=== PATIENT | female | born 1960 | race Caucasian/White ===

== ENCOUNTER 2017-08-05 09:00 | Inpatient (IN) | payer OTHER ==
[2017-07-13 15:18] VITALS: BMI 36.0
--- NOTE | 2017-07-13 16:05 | PAT Medication Instructions ---
Service Date Jul 13, 2017. Current Home Medication List Cholecalciferol (Vitamin D3), 1 CAP PO WK Meloxicam (Mobic), 15 MG PO HS Valacyclovir (Valtrex), 1,000 MG PO HS Medication Instructions For Your Scheduled Surgery Cholecalciferol (Vitamin D3), 1 CAP PO WK (continue as directed) - Check with surgeon for instructions: Meloxicam (Mobic), 15 MG PO HS - Take the following medications as scheduled the night before surgery: Valacyclovir (Valtrex), 1,000 MG PO HS If you have any questions please call us at [phone] or [phone] or [phone]
[2017-07-13 16:29] LABS: BASO % 0.8 %; BASO ABS # 0.05 K/uL (0-0.2); COMPLETE YES; EOS % 1.8 %; HEMATOCRIT 36.2 % (37-47); IG% 0.3 %; LYMPH % 34.3 %; LYMPH ABS # 2.27 K/uL (1.2-3.4); MEAN CELL VOLUME 96.8 fL (80-100); MEAN PLATELET VOLUME 10.4 fL (7.4-10.4); MONO % 9.5 %; NEUT % 53.3 %; PLATELET COUNT 197 K/uL (130-400); RED BLOOD COUNT 3.74 M/uL (4.2-5.4); WHITE BLOOD COUNT 6.62 K/uL (4.8-10.8)
--- NOTE | 2017-07-13 16:29 | DIAGNOSTIC IMAGING REPORT ---
CHEST PREADMISSION(PA/LAT) HISTORY: 56 years-old Female PAT preoperative exam. No acute chest complaints. COMPARISON: None available TECHNIQUE: PA and lateral views of the chest FINDINGS: Cardiomediastinal and hilar silhouettes are within normal limits. There is no pneumothorax, pleural effusion, focal airspace consolidation or overt pulmonary edema. The bones of the chest appear grossly intact. Moderate degenerative changes of the shoulders and spine. Surgical clips of the right upper abdomen suggest prior cholecystectomy. IMPRESSION: No acute cardiopulmonary process. The above report was generated using voice recognition software. It may contain grammatical, syntax or spelling errors. Electronically signed by: Justo Garcia M.D. 07/13/2017 4:28 PM Dictated Date/Time: 07/13/2017 4:27 PM
[2017-07-13 16:38] LABS: PROTHROMBIN TIME (PATIENT) 10.5 SECONDS (9.0-12.0)
[2017-07-13 16:40] LABS: BUN/CREATININE RATIO 23.7 (10-20); CALCIUM 9.4 mg/dl (8.5-10.1); CREATININE 0.79 mg/dl (0.60-1.20)
[2017-07-13 16:42] LABS: URINE APPEARANCE CLEAR (CLEAR); URINE BILIRUBIN NEG (NEG); URINE COLOR YELLOW; URINE NITRITE NEG (NEG); URINE SPECIFIC GRAVITY 1.022 (1.000-1.030); UROBILINOGEN NEG (NEG)
[2017-07-13 16:43] LABS: MANUAL MICROSCOPIC REQUIRED? NO; REVIEW REQ? NO
[2017-07-13 16:45] LABS: ESTIMATED AVERAGE GLUCOSE 103 mg/dl; HA1C FLAG Normal (Normal)
--- NOTE | 2017-08-04 20:22 | HISTORY & PHYSICAL EXAMINATION ---
DATE OF ADMISSION: 08/05/2017 HISTORY OF PRESENT ILLNESS: The patient presents as a 56-year-old white female, 5 feet 8 inches, 230 pounds, presents with left knee pain. She presents for left total knee arthroplasty. She has failed attempts at conservative management including physical therapy, anti-inflammatories, relative rest, activity modification and she presents for left total knee arthroplasty. PAST MEDICAL HISTORY: Otherwise, unremarkable for hypertension or hypercholesterolemia. The patient relates a history of previous sleep apnea. No other medical history is noted. FAMILY HISTORY: Unremarkable and noncontributory. PAST SURGICAL HISTORY: The patient relates a C5-C6 cervical spine surgery, hysterectomy total, previous tonsillectomy, meniscus surgery, left knee. ALLERGIES: CODEINE, DEMEROL. MEDICATIONS: Include Valtrex 1000 mg p.o. daily, Mobic p.r.n., vitamin D 50,000 units p.o. q. weekly. REVIEW OF SYSTEMS: Otherwise unremarkable. See history of present illness for pertinent positives. PHYSICAL EXAMINATION: GENERAL: Reveals a very pleasant female noted with complaints of ongoing pain about knee, has been nonresponsive to conservative therapy and presents for total knee arthroplasty after failing conservative management. HEENT: Unremarkable, atraumatic, normocephalic. HEART: Regular at 70 beats per minute. No murmurs noted. LUNGS: Clear. No rales, rhonchi, or wheezes noted. ABDOMEN: Soft, nontender, nondistended. Bowel sounds are present in all 4 quadrants. RECTAL: No rectal examination was performed. MUSCULOSKELETAL: Consistent with that of DJD, left knee. PLAN: Left total knee arthroplasty, postoperative pain management, DVT prophylaxis, antibiotics as noted above. MTDD
[2017-08-05] VITALS (7 sets, daily range): BP systolic 103–136; BP diastolic 62–81; PULSE 64–80; TEMP 36.3–36.5; O2SAT 93–100; Ht 172.7 cm; Wt 107.0 kg
[~2017-08-05] VITALS: Ht 172.7 cm; Wt 107.0 kg
[2017-08-05] MEDS: TRANEXAMIC ACID INJ 1,000 MG in SYRINGE 0 ML IV SCH ×2 (06:30→11:00)
--- NOTE | 2017-08-05 08:05 | History & Physical Bridge Note ---
H&P Re-Evaluation Bridge Note: I have examined the patient, reviewed the History & Physical and in the interval since the performance of the History & Physical I have noted the following changes of clinical significance: No changes noted
[~2017-08-05 09:00] MED LIST: ACETAMINOPHEN 500 MG TAB PO SCH; BUPIVACAINE 0.25% 30 ML VIAL ONE; BUPIVACAINE 0.5 % 5 MG/1 ML PF 10ML VIAL ONE; CEFAZOLIN 2000MG IV PUSH 10 ML IV SCH; CHOL1CAP95 PO; CeleBREX 200 MG CAP PO SCH; DEXAMETHASONE 4 MG TAB PO SCH; DEXAMETHASONE SOD INJ 4 MG/ML VIAL ONE; EpINEphrine INJ 1MG/ML AMP 1 MG/ML AMP ONE; GABAPENTIN 300 MG CAP PO SCH; LACTATED RINGER'S 1000ML 1,000 ML IV SCH; LACTATED RINGER'S 1000ML 500 ML IV ONE; LACTATED RINGER'S 1000ML IV SCH; MELO7.5T5 PO; METOCLOPRAMIDE HCL 10 MG TAB PO SCH; ROPIVACAINE 5MG/ML 30 ML 150 MG, BUPIVACAINE 0.5% MPF INJ 30 ML, EpINEphrine HCL INJ 0.... INFIL SCH; VALA500T60 PO
[2017-08-05] MEDS ORDERED: EpHEDrine SULFATE 50MG/5ML SYR ONE (09:26)
[2017-08-05] MEDS ORDERED: LIDOCAINE HCL 2% 2 ML VIAL (20MG/ML) ONE (09:26)
[2017-08-05] MEDS ORDERED: PROPOFOL IV EMULSION 10 MG/ML 20 ML VIAL IV ONE ×2 (09:26→10:25)
[2017-08-05] MEDS ORDERED: FENTANYL CITRATE INJ 50 MCG/1 ML 2 ML VIAL ONE (09:27)
[2017-08-05] MEDS ORDERED: MIDAZOLAM HCL 1 MG/ML 2ML VIAL ONE (09:27)
[2017-08-05] MEDS ORDERED: ORTHO JOINT ANESTHETIC ONE (10:56)
[2017-08-05] MEDS ORDERED: BACITRACIN 50000 UNIT VIAL ONE (10:56)
[2017-08-05] MEDS ORDERED: POVIDONE-IODINE OP SOLN 30 ML BTL ONE (10:56)
--- NOTE | 2017-08-05 12:25 | [facility] Operative Report ---
Operative Report Operative Date Aug 05, 2017. Pre-Operative Diagnosis left knee degenerative joint disease Post-Operative Diagnosis left knee degenerative joint disease Procedure(s) Performed Left knee total arthroplasty using vance nephew non block size 5 femur 5 tibia 12 poly [address] Maykel Cervantes Outside Machinist Helper Surgeon(s) Kevyn Castaneda PAC Estimated Blood Loss 5ML Findings Patient just with severe end-stage DJD valgus alignment [id number] with osteophyte formation subchondral sclerosis, marginal osteophytes subchondral cystic changes she's been nonresponsive to conservative therapy presents for total knee arthroplasty Specimens A: Left knee bone and tissue Complication(s) None Disposition Recovery Room / PACU Indications Patient presents with severe end-stage DJD failing attempts at conservative management including physical therapy anti-inflammatories relativeRest activity modification injections presents for total knee arthroplasty Description of Procedure After proper prepping and draping of the left lower extremity anterior midline incision was made over the region of the extensor extensor mechanism after meticulous hemostasis was obtained and maintained in subcutaneous tissues a medial parapatellar incision was made The patella was subluxed lateralward the medial lateral gutter were cleaned from any hypertrophic synovitis and scar tissue of the distal femoral block was placed and the distal femoral osteotomy cut was made subsequently the chamfers anterior and posterior osteotomy cuts were made utilizing the 4-in-1 block the tibia was subsequently subluxed anteriorward medial and ateral meniscal remnants were excised in their entirety remnants of the anterior and posterior cruciate ligaments were excised in their entirety excellent exposure of the proximal tibia was obtained the tibial osteotomy guide was placed on the proximal tibial osteotomy cut was made once again the knee was irrigated with copious amounts of sterile saline solution the patella was subsequently everted lateralward thickened scar tissue around the patella was removed the patella was subsequently cut utilizing a freehand technique and was drilled prepared for final preparation and placement of patella socially flexion-extension gaps were checked and the equal and symmetric trials were placed to the appropriate femoral and tibial trials with poly-spacer being placed for equal flexion and extension gaps and full range of motion including extension to 0 and flexion to 140 the trial components after having been taken to recovery range of motion was subsequently removed meticulous hemostasis was obtained and maintained subsequently a knee block injection of joint cocktail including ropivacaine 0.5% 150 mg. Bupivacaine 0.5 % epinephrine 1-200,030 mL's toradol 30 mg dexamethasone 4 mg ketamine 10 mg clonidine 100 micrograms normal saline solution 30 mg was infiltrated into the soft tissues of the posterior knee medial lateral gutters and periosteal synovium special attention was paid to protect neurovascular structures at all times subsequently trial components having been removed the knee was irrigated with sterile saline solution. debris was removed the proximal tibia was subsequently prepared and was made ready for the placement of the tibial component tibial component was also cemented and tamped into position the femoral component was subsequently placed and cemented in the position the patellar component was subsequently cemented in position because hemostasis once again obtained and maintained wound having been thoroughly irrigated with debridement and debridement lavage was performed as well as a medial parapatellar incision closed with #1 Vicryl in interrupted fashion subcutaneous was closed with #2 Vicryl skin was closed with skin clips. PA-C was necessary for prepping and drapping as well as wound closure of deep fascia Sub cutaneous tissue and skin and was necessary for the case. A sterile compressive dressing was placed patient was taken to recovery in stable condition of report dictated by Billy I attest to the content of the Intraoperative Record and any orders documented therein. Any exceptions are noted below. I attest to the content of the Intraoperative Record and any orders documented therein. Any exceptions are noted below.
[2017-08-05] MEDS ORDERED: FENTANYL CITRATE INJ 50 MCG/1 ML 2 ML VIAL IV PRN (12:45)
[2017-08-05] MEDS ORDERED: ATROPINE SULFATE 0.1 MG/ML 5ML SYR IV PRN ×2 (12:45→14:15)
[2017-08-05] MEDS ORDERED: EpHEDrine SULFATE INJ 50 MG/ML AMP IV PRN ×2 (12:45→14:15)
[2017-08-05] MEDS ORDERED: ONDANSETRON INJ 2 MG/ML 2 ML VIAL IV PRN (12:45)
[2017-08-05] MEDS ORDERED: ALUMINUM/MAGNESIUM/SIMETH (MAALOX MAX) 30 ML UDC PO PRN (13:00)
[2017-08-05] MEDS ORDERED: OXYCODONE HCL IR 5 MG TAB (IMMEDIATE RELEASE) PO PRN (13:00)
[2017-08-05] MEDS ORDERED: MAGNESIUM HYDROXIDE SUSP 30 ML UDC PO PRN (13:00)
[2017-08-05] MEDS ORDERED: MoRPHine SULFATE 4 MG/ML 1 ML CARP\\VIAL IV PRN (13:00)
[2017-08-05] MEDS ORDERED: BISACODYL 10 MG SUPP PR PRN (13:00)
[2017-08-05] MEDS ORDERED: CEFAZOLIN IV 2,000 MG in DEXTROSE 5% 50ML 50 ML IV SCH (13:00)
[2017-08-05] MEDS ORDERED: MoRPHine SULFATE 2 MG/ML CARP IV PRN (13:00)
--- NOTE | 2017-08-05 13:53 | DIAGNOSTIC IMAGING REPORT ---
L KNEE 1 OR 2 VIEWS ROUTINE CLINICAL HISTORY: Left knee osteoarthritis. COMPARISON: None FINDINGS: Alignment of the total left knee arthroplasty is anatomic. There is no fracture or unexpected radiopaque foreign body. Drains are in place. IMPRESSION: Expected findings following total left knee arthroplasty. Electronically signed by: Mayur Sandhu M.D. 08/05/2017 1:51 PM Dictated Date/Time: 08/05/2017 1:51 PM
--- NOTE | 2017-08-05 14:09 | Anesthesiology Progress Note ---
Anesthesia Post Op Note Date & Time Aug 05, 2017 at 14:09 Vital Signs Pain Intensity: 0 Vital Signs Past 12 Hours Date Time Temp Pulse Resp B/P (MAP) Pulse Ox O2 Delivery O2 Flow Rate FiO2 08/05/17 14:00 74 12 110/69 95 Nasal Cannula 2 08/05/17 13:50 36.5 68 12 121/64 99 Nasal Cannula 2 08/05/17 13:40 63 13 111/70 98 Nasal Cannula 2 08/05/17 13:30 75 17 117/64 100 Nasal Cannula 2 08/05/17 13:20 70 12 120/68 100 Oxymask 10 08/05/17 13:10 73 12 105/63 100 Oxymask 10 08/05/17 13:01 36.1 82 16 108/57 100 Oxymask 10 08/05/17 09:30 36.3 64 20 136/79 100 Room Air Notes Mental Status: alert / awake / arousable, participated in evaluation Pt Amnestic to Procedure: Yes Nausea / Vomiting: adequately controlled Pain: adequately controlled Airway Patency, RR, SpO2: stable & adequate BP & HR: stable & adequate Hydration State: stable & adequate Neuraxial Anesthesia: was administered, sensory block is resolving Anesthetic Complications: no major complications apparent
[2017-08-05] MEDS: D5W AND 1/2NSS + 20MEQ KCL 1,000 ML IV SCH (15:28)
[2017-08-05] MEDS: ACETAMINOPHEN 500 MG TAB PO SCH (16:07)
[2017-08-05] MEDS: FERROUS GLUCONATE 324 MG TAB PO SCH (17:43)
[2017-08-05] MEDS: KETOROLAC TROMETHAMINE 30 MG/ML VIAL IV. SCH (17:43)
[2017-08-05] MEDS: TRAMADOL HCL 50 MG TAB PO PRN ×2 (17:45→23:01)
[2017-08-05] MEDS: CEFAZOLIN IV 2,000 MG in SYRINGE 0 ML IV SCH (21:13)
[2017-08-05] MEDS: ASPIRIN 81 MG ECTAB PO SCH (21:14)
[2017-08-05] MEDS: DOCUSATE SODIUM 100 MG CAP PO SCH (21:15)
[2017-08-05] MEDS: ONDANSETRON INJ 2 MG/ML 2 ML VIAL IV PRN (21:15)
[2017-08-06] VITALS (8 sets, daily range): BP systolic 108–126; BP diastolic 66–87; PULSE 67–73; TEMP 36.4–36.7; O2SAT 95–100
[2017-08-06] MEDS: ACETAMINOPHEN 500 MG TAB PO SCH ×4 (00:04→23:54)
[2017-08-06] MEDS: KETOROLAC TROMETHAMINE 30 MG/ML VIAL IV. SCH ×3 (00:04→12:25)
[2017-08-06] MEDS: D5W AND 1/2NSS + 20MEQ KCL 1,000 ML IV SCH ×2 (01:32→10:43)
[2017-08-06] MEDS: CEFAZOLIN IV 2,000 MG in SYRINGE 0 ML IV SCH (04:24)
[2017-08-06] MEDS: TRAMADOL HCL 50 MG TAB PO PRN ×4 (04:25→21:07)
[2017-08-06 06:38] LABS: HEMATOCRIT 36.4 % (37-47); MEAN CORPUSCULAR HEMOGLOBIN 30.8 pg (25-34); MEAN CORPUSCULAR HGB CONC 32.4 g/dl (32-36); MEAN PLATELET VOLUME 10.8 fL (7.4-10.4); PLATELET COUNT 218 K/uL (130-400); RED BLOOD COUNT 3.83 M/uL (4.2-5.4); WHITE BLOOD COUNT 16.17 K/uL (4.8-10.8)
[2017-08-06 07:12] LABS: BUN/CREATININE RATIO 16.3 (10-20); CALCIUM 8.7 mg/dl (8.5-10.1); CREATININE 0.69 mg/dl (0.60-1.20); POTASSIUM 4.1 mmol/L (3.5-5.1)
--- NOTE | 2017-08-06 07:53 | Orthopedic Progress Note ---
Orthopedic Progress Note Date of Service Aug 06, 2017. Subjective Post OP Day: 1 Reports: feeling well, Denies: chest pain, SOB, nausea / vomiting, light headedness, calf pain Additional Notes: JOSÉ NOT HELPING MUCH. SHE FOUND THAT 2 TRAMADOL SEEMS TO BE CONTROLLING HER PAIN BEST. Objective calves soft nontender, N/V intact, dressing C/D/I, A&O x3, toes mobile, hemovac drainage (305/125 cc per shift) Date Time Temp Pulse Resp B/P (MAP) Pulse Ox O2 Delivery O2 Flow Rate FiO2 08/06/17 07:32 36.5 69 18 111/67 (82) 95 Room Air 08/06/17 02:52 36.4 71 18 110/66 (81) 95 Room Air 08/06/17 00:15 Room Air 08/05/17 22:56 36.4 69 18 112/70 (84) 93 Room Air 08/05/17 19:25 36.5 73 18 103/62 (76) 94 Room Air 08/05/17 17:20 36.5 80 18 113/74 (87) 97 Room Air 08/05/17 15:25 Nasal Cannula 2.0 08/05/17 15:20 36.4 79 16 112/74 (87) 99 Nasal Cannula 2.0 08/05/17 14:50 36.4 75 18 115/81 (92) 98 Nasal Cannula 2.0 08/05/17 14:20 36.4 69 16 121/80 (94) 98 Nasal Cannula 2.0 08/05/17 14:20 98 Nasal Cannula 2.0 08/05/17 14:20 98 Nasal Cannula 08/05/17 14:00 74 12 110/69 95 Nasal Cannula 2 08/05/17 13:50 36.5 68 12 121/64 99 Nasal Cannula 2 08/05/17 13:40 63 13 111/70 98 Nasal Cannula 2 08/05/17 13:30 75 17 117/64 100 Nasal Cannula 2 08/05/17 13:20 70 12 120/68 100 Oxymask 10 08/05/17 13:10 73 12 105/63 100 Oxymask 10 08/05/17 13:01 36.1 82 16 108/57 100 Oxymask 10 08/05/17 09:30 36.3 64 20 136/79 100 Room Air Laboratory Results 24 Hours: Test 08/06/17 06:10 Hematocrit 36.4 % Hemoglobin 11.8 g/dL Assessment & Plan Assessment: POD#1 SP LEFT TKA Inhouse Planning Pain Management: Ultram, PO Tylenol DVT Prophylaxis: TEDs, SCDs, ASA Discharge Planning Discharge Planning: home with home health ([facility])
[2017-08-06] MEDS: PANTOprazole SOD 40 MG TAB PO SCH (08:30)
[2017-08-06] MEDS: FERROUS GLUCONATE 324 MG TAB PO SCH ×3 (08:31→17:45)
[2017-08-06] MEDS: MULTIVITAMIN TAB PO SCH (08:31)
[2017-08-06] MEDS: DOCUSATE SODIUM 100 MG CAP PO SCH ×2 (08:31→21:06)
[2017-08-06] MEDS: ASPIRIN 81 MG ECTAB PO SCH ×2 (08:31→21:06)
--- NOTE | 2017-08-06 10:25 | Anesthesiology Progress Note ---
Anesthesia Post Op Note Date & Time Aug 06, 2017 at 10:25 Vital Signs Vital Signs Past 12 Hours Date Time Temp Pulse Resp B/P (MAP) Pulse Ox O2 Delivery O2 Flow Rate FiO2 08/06/17 07:45 97 08/06/17 07:32 36.5 69 18 111/67 (82) 95 Room Air 08/06/17 02:52 36.4 71 18 110/66 (81) 95 Room Air 08/06/17 00:15 Room Air 08/05/17 22:56 36.4 69 18 112/70 (84) 93 Room Air Notes Mental Status: alert / awake / arousable, participated in evaluation Pt Amnestic to Procedure: Yes Nausea / Vomiting: adequately controlled Pain: adequately controlled Airway Patency, RR, SpO2: stable & adequate BP & HR: stable & adequate Hydration State: stable & adequate Neuraxial Anesthesia: was administered, sensory block resolved Anesthetic Complications: no major complications apparent
[2017-08-06] MEDS: ONDANSETRON INJ 2 MG/ML 2 ML VIAL IV PRN (10:45)
--- NOTE | 2017-08-06 16:08 | Discharge Instructions ---
Discharge Instructions Date of Service Aug 06, 2017. Admission Reason for Admission: Left Knee Osteoarthritis Discharge Discharge Diagnosis / Problem: left total knee replacement Discharge Goals Goal(s): Decrease discomfort, Improve function, Increase independence Activity Recommendations Activity Limitations: as noted below Weightbearing Status: Left weightbearing (as tolerated) . Instructions / Follow-Up Instructions / Follow-Up ACTIVITY RECOMMENDATIONS: SELF CARE INSTRUCTIONS AFTER TOTAL KNEE REPLACEMENT A. You may need to continue a physical therapy program after discharge from the hospital. There are several options available to you. Your doctor will assist you in selecting the best one for you. 1. An out-patient facility 2 to 3 times a week for therapy or home therapy. 2. Continue working on all exercises taught to you in the hospital. Your goals should be to increase bending of your knee to 90 degrees and beyond and to fully straighten your knee. B. You may progress at your own pace from walking with a walker or crutches to a cane; then to no assistive devices. C. Make walking a part of your daily routine. Be up as much as comfortable with rest periods throughout the day. Rest with leg elevation is very important. Use the ice wrap frequently for the first 3-4 weeks. D. There are no restrictions on activities. You may ride in a car, shop, participate in office clerk routine and all social activities. E. Wear the long elastic stockings (DARIUS hose) 20 hours a day for 2 weeks after surgery. They can be removed several times a day for laundering and for a bath. F. You may shower, no tub baths until cleared by your doctor. SPECIAL CARE INSTRUCTIONS: VERY IMPORTANT TO READ AND REVIEW A. There are a few signs you need to watch for after you are home. Call [facility] [place] if you notice any of the followin. Increased severe knee pain. Some pain is expected especially when you exercise. 2. Increased swelling in your leg or knee; pain or swelling of the calf muscle in either lower leg. 3. Any fluid drainage from the incision. 4. Shortness of breath or chest pain. B. Please call [facility] at if you have any concerns or questions about your operation or recovery. The doctor or his nurse will return your call promptly. C. You must take antibiotics before dental work, bladder, bowel or other surgery. Your doctor will provide you with a permanent care to carry describing this precaution. IMPORTANT: * REMEMBER TO TAKE ASPIRIN, 81 MG, TWICE DAILY FOR 4 WEEKS UNLESS OTHERWISE DIRECTED. THIS IS YOUR BLOOD THINNER. * HIGH RISK PATIENTS MAY BE PRESCRIBED A STRONGER BLOOD THINNER. THIS WILL BE PROVIDED AT DISCHARGE. * CALL IF INCREASED PAIN, REDNESS, DRAINAGE OR FEVER GREATER THAT 101. * WEAR DARIUS HOSE 20 HOURS PER DAY FOR 2 WEEKS. * DERMABOND Prineo- This is a mesh tape dressing that is covered with glue. It should remain in place until the incision is properly healed, usually 10-14 days. This dressing is designed to naturally slough off. You may trim the excess mesh tape as it peels off. Incision may be briefly wet in a shower. Dry immediately by blotting with a clean, dry towel. Do not bath or swim until instructed by your doctor. Do not scratch, rub, or pick at the dressing. Do not apply any topical ointments or lotions until dressing is completely removed and/or instructed by your doctor. There may be a small piece of suture material at one end of your incision. Do not pull or trim this. If it is bothersome or catching on clothing, you may cover it with a band-aid. FOLLOW UP VISIT: If appointment is not already scheduled: Please call [facility] [place] to make a follow-up appointment for 2 weeks after your surgery at . Current Hospital Diet Patient's current hospital diet: Regular Diet Discharge Diet Recommended Diet: Regular Diet Procedures Procedures Performed: Left knee total arthroplasty using vance nephew non block size 5 femur 5 tibia 12 poly 32 patella Pending Studies Studies pending at discharge: no Laboratory Results Hemoglobin A1c Test 07/13/17 15:50 Range/Units Estimated Average Glucose 103 mg/dl Hemoglobin A1c 5.2 4.5-5.6 % Medical Emergencies . Who to Call and When: Medical Emergencies: If at any time you feel your situation is an emergency, please call 911 immediately. . Non-Emergent Contact Non-Emergency issues call your: Primary Care Provider . "Provider Documentation" section prepared by Obey Antony. . VTE Core Measure Inpt VTE Proph given/why not?: Other Anticoagulation (ASA 81mg po bid x 1 month ), T.E.DDarrell Stockings, SCD's [place] Drug Monitoring Program Search Results: patient reviewed within database, no issues identified
[2017-08-06] MEDS: CeleBREX 200 MG CAP PO SCH (21:05)
[2017-08-07] MEDS: TRAMADOL HCL 50 MG TAB PO PRN ×3 (04:59→13:36)
[2017-08-07 06:03] VITALS: BP 121/76; PULSE 81; TEMP 36.7; O2SAT 95
[2017-08-07 07:20] VITALS: BP 134/80; PULSE 86; TEMP 36.6; O2SAT 96
[2017-08-07] MEDS ORDERED: ONDA8TAB6 PO (07:24)
[2017-08-07] MEDS ORDERED: ASPEC81 PO (07:24)
[2017-08-07] MEDS ORDERED: RXC5 PO (07:24)
[2017-08-07] MEDS ORDERED: ACET-24 PO (07:24)
[2017-08-07] MEDS ORDERED: ULT50X PO (07:24)
[2017-08-07] MEDS ORDERED: CLB200 PO (07:24)
--- NOTE | 2017-08-07 07:29 | Orthopedic Progress Note ---
Orthopedic Progress Note Date of Service Aug 07, 2017. Subjective Post OP Day: 2 Reports: feeling well, pain controlled w PO medications, Denies: complaints, chest pain, SOB, nausea / vomiting, light headedness, calf pain Objective calves soft nontender, N/V intact, capillary refill less than 2 sec., incision C /D/I, A&O x3, toes mobile Date Time Temp Pulse Resp B/P (MAP) Pulse Ox O2 Delivery O2 Flow Rate FiO2 08/07/17 06:03 36.7 81 16 121/76 (91) 95 Room Air 08/06/17 23:45 Room Air 08/06/17 23:03 36.7 73 18 108/72 (84) 96 Room Air 08/06/17 18:54 96 Room Air 08/06/17 15:38 36.6 68 18 126/87 (100) 99 Room Air 08/06/17 15:15 Room Air 08/06/17 10:53 36.7 67 18 119/79 (92) 98 Room Air 08/06/17 10:26 68 100 08/06/17 07:45 97 08/06/17 07:32 36.5 69 18 111/67 (82) 95 Room Air Assessment & Plan Assessment: POD#2 SP LEFT TKA Plan: plan for d/c home later today discussed d/c medications has no questions f/u 2 weeks prineo care discussed ASA/teds upon dc Discharge Planning Discharge Planning: home with home health DVT Prophylaxis: TEDs, SCDs, ASA Therapy: Physical Therapy
[2017-08-07] MEDS: ACETAMINOPHEN 500 MG TAB PO SCH (07:42)
[2017-08-07] MEDS: CeleBREX 200 MG CAP PO SCH (07:43)
[2017-08-07] MEDS: PANTOprazole SOD 40 MG TAB PO SCH (07:44)
[2017-08-07] MEDS: DOCUSATE SODIUM 100 MG CAP PO SCH (07:44)
[2017-08-07] MEDS: ASPIRIN 81 MG ECTAB PO SCH (07:45)
[2017-08-07] MEDS: MULTIVITAMIN TAB PO SCH (07:45)
[2017-08-07] MEDS: FERROUS GLUCONATE 324 MG TAB PO SCH ×2 (07:46→12:30)
[2017-08-07 08:02] VITALS: O2SAT 96
[2017-08-07 10:27] VITALS: BP 134/80; PULSE 86; TEMP 36.6; O2SAT 96
[2017-08-07] MEDS: ONDANSETRON INJ 2 MG/ML 2 ML VIAL IV PRN (11:15)
--- NOTE | 2017-08-07 11:46 | DISCHARGE SUMMARY ---
DISCHARGE DIAGNOSIS: Degenerative joint disease, left knee. CONSULTS: None. COMPLICATIONS: None. PROCEDURES: Left total knee arthroplasty performed by Dr. Cervantes on 08/05/2017. BRIEF HISTORY: As dictated in the history and physical. HOSPITAL SUMMARY: The patient was admitted on the above date and had the above-noted surgery performed, which she tolerated well. On her first postoperative day, she was feeling well. She felt that her OxyIR was not helping much, but that the tramadol seemed to be controlling her pain best. Calves were soft and nontender, neurovascularly intact. Dressings were clean, dry and intact. Toes were mobile and vital signs were stable, and she was afebrile. Hemoglobin was 11.8 and she was started on physical therapy protocol and continued on DVT prophylaxis and pain management. Plans were for her to go home with home health services upon discharge. The rest of her stay was essentially uneventful and by 08/07/2017, she was feeling well, pain was controlled. Calves were soft and nontender, neurovascularly intact. Incision was clean, dry and intact. Toes were mobile. Vital signs were stable and she was continued on her PT protocol, which she was progressing well and it was felt that she was stable for discharge on 08/07/2017. For further review, please see chart. LABORATORY AND X-RAY DATA: As per chart. DISCHARGE INSTRUCTIONS: The patient was discharged to home in satisfactory condition on 08/07/2017. DIET: Regular. ACTIVITY: Weightbearing as tolerated, left lower extremity. Follow TK instruction sheets and special care instructions as noted. Follow up with Dr. Cervantes in 2 weeks. The patient to call for appointment if one has not been made for you. DISCHARGE MEDICATIONS: Acetaminophen 1000 mg p.o. q. 8 hours, aspirin 81 mg p.o. b.i.d. for 30 days, Celebrex 200 mg p.o. b.i.d., Zofran 8 mg p.o. q. 8 hours p.r.n., oxycodone 5-10 mg p.o. q. 4 hours p.r.n., tramadol 50-100 mg p.o. q. 4 hours p.r.n., resume vitamin D3 50,000 units 1 cap p.o. week and Valtrex 1000 mg p.o. at bedtime. Stop taking Meloxicam.
[2017-08-07 11:53] VITALS: BP 140/88; PULSE 70; TEMP 36.4; O2SAT 98
== END 2017-08-07 14:14 | disposition home or self-care (01) | DRG 470 ==
LOC: C.ACU 09:00 → C.3E 13:06 → ENRESERV 13:58
PROVIDERS: ADMIT Orthopaedic Surgery; ATTEND Orthopaedic Surgery
PROC: 0SRD0J9 Replacement of Left Knee Joint with Synthetic Substitute, Cemented, Open Approach (ICD-10-PCS; principal; 2017-08-05 11:30)
DX: M17.12 Unilateral primary osteoarthritis, left knee (principal); Z79.899 Other long term (current) drug therapy

== ENCOUNTER 2019-08-03 08:30 | Inpatient (IN) ==
--- NOTE | 2019-06-29 13:16 | PAT Medication Instructions ---
Medication Instructions Date of Service June 29, 2019 Home Medications Medications Medical Marijuana 1 dose UD PRN 06/24/19 [History Confirmed 06/24/19] celecoxib [Celebrex] 200 mg PO DAILY 06/24/19 [History Confirmed 06/24/19] ergocalciferol (vitamin D2) [Vitamin D2] 50,000 unit PO WK 06/24/19 [History Confirmed 06/24/19] tramadol [Ultram] 50 - 100 mg PO UD PRN 06/24/19 [History Confirmed 06/24/19] valacyclovir [Valtrex] 1,000 mg PO DAILY 06/24/19 [History Confirmed 06/24/19] Continue as directed Medical Marijuana 1 dose UD PRN (if needed) ASK your surgeon for instructions celecoxib [Celebrex] 200 mg PO DAILY DO NOT take the morning of surgery ergocalciferol (vitamin D2) [Vitamin D2] 50,000 unit PO WK Take morning of surgery With a small sip of water, OTHERWISE NOTHING TO EAT OR DRINK AFTER MIDNIGHT: tramadol [Ultram] 50 - 100 mg PO UD PRN (okay to take up to 4 hours prior to surgery if needed) valacyclovir [Valtrex] 1,000 mg PO DAILY Other Notes If you have any questions please call us at [phone] or [phone] or [phone] or [phone]
--- NOTE | 2019-06-30 09:11 | Anesthesiology Consultation ---
Date of Service June 30, 2019 Assessment & Plan (1) Encounter for pre-operative examination: - Awaiting review preop testing (labs, CXR). - Awaiting surgeon-ordered PCP preop evaluation (Dr. Bhat). Personal hx of pseudocholinesterase deficiency (OR made aware) Chart Review Chart Review: Patient seen in Pre Admission Testing Teaching & Discussion Pre-Anesthesia Teaching/Discussion Notes: Instructed NPO after midnight before surgery,except medications with 15 cc of water. Medication instructions provided according to the PAT guidelines. History Surgery Operation Date: 08/03/19 07:00 Proposed Procedures p Right Total Knee Arthroplasty - Maykel Cervantes DO Height/Weight Height: 5 ft 8 in Weight: 106.9 kg Allergies Allergy/AdvReac Type Severity Reaction Status Date / Time succinylcholine Allergy Unknown pseudocholinesterase Verified 06/30/19 09:04 deficiency codeine AdvReac Unknown n/v Verified 06/24/19 08:02 lorazepam [From Ativan] AdvReac Unknown nervousness Verified 06/30/19 09:04 meperidine AdvReac Unknown n/v Verified 06/24/19 08:02 perfume AdvReac Unknown nausea, Verified 06/30/19 09:04 headache Medications Home Medications Medication Instructions Recorded Confirmed Last Taken Medical Marijuana 1 dose UD PRN 06/24/19 06/24/19 Unknown celecoxib [Celebrex] 200 mg PO DAILY 06/24/19 06/24/19 Unknown ergocalciferol (vitamin D2) 50,000 unit PO WK 06/24/19 06/24/19 Unknown [Vitamin D2] tramadol [Ultram] 50 - 100 mg PO UD PRN 06/24/19 06/24/19 Unknown valacyclovir [Valtrex] 1,000 mg PO DAILY 06/24/19 06/24/19 Unknown Past Medical History Medical History Anxiety Bursitis b/l hips s/p cortisone injections (most recent 06/22/19) Degenerative disc disease Carlos Pal infection "chronic" hx Fibromyalgia HNPCC (hereditary nonpolyposis colon cancer) Hx of vertigo IBS (irritable bowel syndrome) Liver spot Obesity Osteoarthritis Sleep apnea claustraphobic- could not tolerate CPAP Urinary frequency chronic Exercise / Class Metabolic Activity II 4-5 Yardwork/Stairs/Walk up hill (ONE FLIGHT OF STAIRS (NO CHEST PAIN/NO SOB)) Past Family History Family History Mother Family history of liver cancer Other Family history of FAP (familial adenomatous polyposis) Family history of colon cancer Family history of esophageal cancer Family history of hereditary nonpolyposis colorectal cancer (HNPCC) Family history of kidney cancer Past Surgical History Surgical History History of bilateral breast reduction surgery History of breast biopsy R / MARKER History of cholecystectomy History of colonoscopy History of neck surgery C5-6 SOMETIME NECK STIFF, DENIES LIMITED ROM History of tonsillectomy and adenoidectomy History of total left knee replacement History of urologic surgery BLADDER TAC Past Anesthesia History Pseudocholinesterase Deficiency (personal hx (diagnosed after laparoscopy 30+ years ago when patient had difficulty breathing/waking up after surgery)) History of PONV History of PONV (remote hx) and Hx of Motion Sickness Social History Smoking Status: Never smoker Do You Dip or Chew Tobacco: No Hx Alcohol Use: Yes alcohol intake frequency: holidays/special occasions only Hx Substance Use: No substance use type: prescription drug and other Substance Use Type Other:: MEDICAL MARIJUANA (CBD OIL/THC CREAM/RSO) - ADVISED Review of Systems Patient denies chest pain, shortness of breath, dyspnea on exertion, cough, wheezing, palpitations. Physical Exam Vital Signs VITALS BP 124/80 P 65 TEMP 97.9 SP02 95%RA RESP 18 PHYSICAL Full neck and c-spine range of motion (mild stiffness with extension) Full TMJ range of motion. TMD 3.5 finger breaths Mallampati Score 2 Dentition: intact, crown on molar Lungs: clear throughout to auscultation Cardiac: regular rate and rhythm, no murmurs noted Spine: normal Carotid arteries: negative bruit Extremities: no edema Testing Electrocardiogram Date: 02/28/19 SR at 71bpm. Stress Test Date: 12/15/17 Type: exercise Myocardial perfusion with no evidence of ischemia or infarction. EF 69%. Normal wall motion. 10.1 METS. 92% MPHR. No EKG evidence of ischemia.
[2019-06-30 10:28] LABS: Basophils # (auto) 0.06 K/uL (0-0.2); Eosinophils # (auto) 0.14 K/uL (0-0.5); Eosinophils % (auto) 2.4 %; Hematocrit (blood only) 40.5 % (37-47); Hemoglobin 13.2 g/dL (12.0-16.0); Immature Granulocytes # (auto) 0.02 K/uL (0.00-0.02); Immature Granulocytes % (auto) 0.3 %; Lymphocytes # (auto) 1.46 K/uL (1.2-3.4); Mean Corpuscular Hemoglobin 31.6 pg (25-34); Mean Corpuscular Hgb Conc 32.6 g/dL (32-36); Mean Corpuscular Volume 96.9 fL (80-100); Monocytes # (auto) 0.88 K/uL (0.11-0.59); Monocytes % (auto) 15.1 %; Neutrophils # (auto) 3.27 K/uL (1.4-6.5); Neutrophils % (auto) 56.2 %; Platelet Count 198 K/uL (130-400); RDW Standard Deviation 45.8 fL (36.4-46.3); Red Blood Count 4.18 M/uL (4.2-5.4); White Blood Count 5.83 K/uL (4.8-10.8)
[2019-06-30 10:32] LABS: Appearance Urine Clear (Clear); Bilirubin Urine Negative (Negative); Blood Urine Negative (Negative); Color Urine Yellow; Glucose Urine UA Negative (Negative); Ketones Urine Negative (Negative); Leukocyte Esterase Urine Negative (Negative); Nitrite Urine Negative (Negative); Protein Urine Negative (Negative); Specific Gravity Urine 1.016 (1.000-1.030); Urobilinogen Urine Negative (Negative)
--- NOTE | 2019-06-30 10:32 | XRay Report ---
XR chest Pre-admission PA/Lat CLINICAL HISTORY: Preoperative evaluation. COMPARISON STUDY: Chest radiograph July 13, 2017. FINDINGS: Lung volumes are normal. Lungs are clear. There is no pneumothorax or pleural effusion. Car diac size is normal. Mediastinal contours are normal. There is no evidence for pulmonary edema. Incid ental note is made of cholecystectomy clips. IMPRESSION: No acute cardiopulmonary findings. Electronically signed by: Mayur Sandhu M.D. 06/30/2019 10:31 AM
[2019-06-30 10:34] LABS: Estimated Average Glucose 114 mg/dl; Hemoglobin A1C 5.6 % (4.5-5.6)
[2019-06-30 10:36] LABS: Albumin Level 3.9 gm/dl (3.4-5.0); BUN Creatinine Ratio 25.2 (10-20); Calcium 9.3 mg/dl (8.5-10.1); Creatinine Clr Calc Pharmacy 104.4 ml/min; Est GFR (Non-African American) 86.3; Potassium 4.2 mmol/L (3.5-5.1)
[2019-06-30 10:43] LABS: Partial Thromboplastin Ratio 0.9; Partial Thromboplastin Time 24.7 Seconds (21.0-31.0)
--- NOTE | 2019-07-05 08:45 | History & Physical Report ---
Date of Service July 05, 2019 date of surgery: 08/03/19 Assessment & Plan (1) Localized osteoarthritis of right knee: Risks and benefits of procedure discussed in detail today, patient would like to proceed with a Right total knee replacement at [facility] as scheduled. will obtain medical clearance prior to surgery as well as obtain PATs at [facility]. Will place on ASA 81mg po bid x 1 month post op, f/u 2 weeks post op for routine post-operative care and x-ray, sooner if having any problems. will make arrangements for HHPT at the time of discharge. At this point in time, has failed conservative measures and would like to proceed with surgical intervention. History of Present Illness Chief Complaint: Right knee pain Primary Care Provider: Josselin Bhat Ms Marrufo is a 58 year old female who complains of right knee pain, presents for pre-op evaluation prior to a right total knee replacement at [facility]. She presents with pain and stiffness on the right side. She states that the symptoms have been chronic non-traumatic and her symptoms occur constantly with intermittent worsening. Currently the patient states that the symptoms are moderate-severe. The pain is described as aching and throbbing and occur continuously. The symptoms are aggravated by ascending stairs, descending stairs, daily activities, driving, first steps while awake, kneeling, movement, repetitive activities, sleeping on the affected side, squatting, walking and weight bearing. Sofie states that the symptoms are relieved by no specific activity. In addition to right knee pain the patient is also experiencing decreased mobility, difficulty bending, difficulty going to sleep, limping, nighttime awakening, pain, stiffness, tenderness and weakness. Prior NSAIDs include Celebrex and Ibuprofen. She has been treated with a corticosteroid injection on the right side and has had previous therapy. Allergies Allergy/AdvReac Type Severity Reaction Status Date / Time succinylcholine Allergy Unknown pseudocholinesterase Verified 06/30/19 09:04 deficiency codeine AdvReac Unknown n/v Verified 06/24/19 08:02 lorazepam [From Ativan] AdvReac Unknown nervousness Verified 06/30/19 09:04 meperidine AdvReac Unknown n/v Verified 06/24/19 08:02 perfume AdvReac Unknown nausea, Verified 06/30/19 09:04 headache Home Medications Home Medications Medication Instructions Recorded Confirmed Type Medical Marijuana 1 dose UD PRN 06/24/19 06/24/19 History celecoxib [Celebrex] 200 mg PO DAILY 06/24/19 06/24/19 History ergocalciferol (vitamin D2) 50,000 unit PO WK 06/24/19 06/24/19 History [Vitamin D2] tramadol [Ultram] 50 - 100 mg PO UD PRN 06/24/19 06/24/19 History valacyclovir [Valtrex] 1,000 mg PO DAILY 06/24/19 06/24/19 History Past Med/Surg History Medical History Anxiety Bursitis b/l hips s/p cortisone injections (most recent 06/22/19) Degenerative disc disease Carlos Pal infection "chronic" hx Fibromyalgia HNPCC (hereditary nonpolyposis colon cancer) Hx of vertigo IBS (irritable bowel syndrome) Liver spot Obesity Osteoarthritis Sleep apnea claustraphobic- could not tolerate CPAP Urinary frequency chronic Surgical History History of bilateral breast reduction surgery History of breast biopsy R / MARKER History of cholecystectomy History of colonoscopy History of neck surgery C5-6 SOMETIME NECK STIFF, DENIES LIMITED ROM History of tonsillectomy and adenoidectomy History of total left knee replacement History of urologic surgery BLADDER TAC Family History Mother Family history of liver cancer Other Family history of FAP (familial adenomatous polyposis) Family history of colon cancer Family history of esophageal cancer Family history of hereditary nonpolyposis colorectal cancer (HNPCC) Family history of kidney cancer Social History Preferred Language: Slovenian Communication Ability: Effective Clamp Remover Required: No Beliefs That Will Affect Care: Bahai Bahai Beliefs: PENTECOSTAL Current Living Situation: Spouse Other Information That Helps Us Care for You: No Feels Safe at Home: Yes Smoking Status: Never smoker Do You Dip or Chew Tobacco: No ; Hx Alcohol Use: Yes Hx Substance Use: No Review of Systems Review of Systems: All systems reviewed & are unremarkable except as noted in HPI & below Constitutional: no fever, no chills and no sweats Respiratory: no cough and no dyspnea Cardiovascular: no chest pain, no dyspnea and no orthopnea Gastrointestinal: no abdominal pain, no nausea and no vomiting Musculoskeletal: as per Subjective / HPI Physical Exam Physical Exam: Ht: 5ft 8in Wt: 106.9kg BP: 122/78 Pulse: 76 Constitutional: WD/WN, vitals as above no acute distress Respiratory: normal respiratory effort, lungs clear to auscultation no respiratory distress, no labored breathing and does not use accessory muscles Cardiovascular: RRR, no murmur, no edema Gastrointestinal (Abdomen): normal bowel sounds, soft, nontender, no hepatosplenomegaly Musculoskeletal: Knee: + knee abnormal to inspection (RIGHT KNEE- ), + effusion (+1 effusion), + limited ROM of knee (ROM 0/3/110), + knee ROM with crepitation, + joint line tenderness (medial joint line) and + Arpita's sign positive; no deformity, no skin erythema, no ecchymosis, no valgus laxity, no varus laxity, no rotational laxity, anterior drawer test negative, Emmy's sign negative and pivot shift test negative Results & Data Laboratory Results Laboratory Results WBC 5.83 K/uL (4.8-10.8) 06/30/19 09:26 RBC 4.18 M/uL (4.2-5.4) L 06/30/19 09:26 Hgb 13.2 g/dL (12.0-16.0) 06/30/19 09:26 Hct 40.5 % (37-47) 06/30/19 09: MCV 96.9 fL (80-100) 06/30/19 09:26 MCH 31.6 pg (25-34) 06/30/19 09:26 MCHC 32.6 g/dL (32-36) 06/30/19 09:26 RDW Std Deviation 45.8 fL (36.4-46.3) 06/30/19 09:26 RDW Coeff of [place] 13.0 % (11.5-14.5) 06/30/19 09:26 Plt Count 198 K/uL (130-400) 06/30/19 09:26 MPV 11.0 fL (7.4-10.4) H 06/30/19 09:26 Immature Gran % (Auto) 0.3 % 06/30/19 09:26 Neut % (Auto) 56.2 % 06/30/19 09: Lymph % (Auto) 25.0 % 06/30/19 09:26 Gregg % (Auto) 15.1 % 06/30/19 09:26 Eos % (Auto) 2.4 % 06/30/19 09:26 Baso % (Auto) 1.0 % 06/30/19 09:26 Immature Gran # (Auto) 0.02 K/uL (0.00-0.02) 06/30/19 09: Neut # (Auto) 3.27 K/uL (1.4-6.5) 06/30/19 09: Lymph # (Auto) 1.46 K/uL (1.2-3.4) 06/30/19 09: Gregg # (Auto) 0.88 K/uL (0.11-0.59) H 06/30/19 09: Eos # (Auto) 0.14 K/uL (0-0.5) 06/30/19 09: Baso # (Auto) 0.06 K/uL (0-0.2) 06/30/19 09:26 PT 10.0 Seconds (9.0-12.0) 06/30/19 09:26 INR 1.0 (0.9-1.1) 06/30/19 09:26 APTT 24.7 Seconds (21.0-31.0) 06/30/19 09: PTT Ratio 0.9 06/30/19 09:26 Sodium 139 mmol/L (136-145) 06/30/19 09:26 Potassium 4.2 mmol/L (3.5-5.1) 06/30/19 09:26 Chloride 108 mmol/L (98-107) H 06/30/19 09:26 Carbon Dioxide 29 mmol/L (21-32) 06/30/19 09:26 Anion Gap 2.0 (3-11) L 06/30/19 09:26 BUN 19 mg/dl (7-18) H 06/30/19 09:26 Creatinine 0.77 mg/dl (0.6-1.2) 06/30/19 09:26 Est Cr Clr Drug Dosing 104.4 ml/min 06/30/19 09:26 Est GFR ( Amer) 100.0 06/30/19 09:26 Est GFR (Non-Af Amer) 86.3 06/30/19 09:26 BUN/Creatinine Ratio 25.2 (10-20) H 06/30/19 09:26 Glucose 98 mg/dl (70-99) 06/30/19 09:26 Estimat Average Glucose 114 mg/dl 06/30/19 09:26 Hemoglobin A1c 5.6 % (4.5-5.6) 06/30/19 09:26 Calcium 9.3 mg/dl (8.5-10.1) 06/30/19 09:26 Albumin 3.9 gm/dl (3.4-5.0) 06/30/19 09:26 Urine Color Yellow 06/30/19 09:26 Urine Appearance Clear (Clear) 06/30/19 09:26 Urine pH 7.0 (4.5-7.5) 06/30/19 09:26 Ur Specific Wilmer 1.016 (1.000-1.030) 06/30/19 09:26 Urine Protein Negative (Negative) 06/30/19 09:26 Urine Glucose (UA) Negative (Negative) 06/30/19 09:26 Urine Ketones Negative (Negative) 06/30/19 09:26 Urine Blood Negative (Negative) 06/30/19 09:26 Urine Nitrite Negative (Negative) 06/30/19 09:26 Urine Bilirubin Negative (Negative) 06/30/19 09:26 Urine Urobilinogen Negative (Negative) 06/30/19 09:26 Ur Leukocyte Esterase Negative (Negative) 06/30/19 09:26 Blood Type O Positive 06/30/19 09:26 Antibody Screen NEGATIVE 06/30/19 09:26 Diagnostic Findings right knee x-ray from 03/23/19 showing decreased joint space medial compartment, there is also narrowing of the lateral compartment and patellofemoral joint. there is osteophyte formation, subchondral sclerosis noted, no loose bodies, no acute bony pathology. overall impression tricompartmental degenerative changes to the right knee.
[~2019-08-03 08:30] MED LIST changes: -BUPIVACAINE 0.25% 30 ML VIAL ONE; +CEFAZOLIN 2000MG 2,000 MG/15 ML SYR IV SCH; -CEFAZOLIN 2000MG IV PUSH 10 ML IV SCH; -CHOL1CAP95 PO; -DEXAMETHASONE 4 MG TAB PO SCH; -DEXAMETHASONE SOD INJ 4 MG/ML VIAL ONE; +EPINEPHrine INJ 1 MG/ML AMP ONE; -EpINEphrine INJ 1MG/ML AMP 1 MG/ML AMP ONE; +FAMOTIDINE 20 MG TAB PO SCH; -GABAPENTIN 300 MG CAP PO SCH; +GABAPENTIN 600 MG DOSE PO SCH; -LACTATED RINGER'S 1000ML 1,000 ML IV SCH; -LACTATED RINGER'S 1000ML 500 ML IV ONE; -LACTATED RINGER'S 1000ML IV SCH; +LR 500ML BOLUS, THEN 15ML/HR IV SCH; -MELO7.5T5 PO; -METOCLOPRAMIDE HCL 10 MG TAB PO SCH; +ROPIVACAINE 0.5% 5 MG/ML 30 ML VIAL ONE; +ROPIVACAINE 0.5% HCL/PF 150 MG, BUPIVACAINE 0.5% MPF 30 ML, EPINEPHrine 30MG/30ML (OR U... INSTIL SCH; -ROPIVACAINE 5MG/ML 30 ML 150 MG, BUPIVACAINE 0.5% MPF INJ 30 ML, EpINEphrine HCL INJ 0.... INFIL SCH; +TRANEXAMIC ACID 1,000 MG **IV Intra-op IV SCH; +TRANEXAMIC ACID 1,000 MG **IV Pre-op IV SCH; -VALA500T60 PO; +dexAMETHasone 4 MG TAB PO SCH
[2019-08-03] MEDS ORDERED: ONDANSETRON INJ 2 MG/ML 2 ML VIAL ONE (09:06)
[2019-08-03] MEDS ORDERED: PROPOFOL IV EMULSION 10 MG/ML 20 ML VIAL IV ONE (09:06)
[2019-08-03] MEDS ORDERED: LIDOCAINE HCL 2% 2 ML VIAL/AMP(20MG/ML) INFIL ONE (09:06)
[2019-08-03] MEDS ORDERED: fentaNYL citrate 100 MCG/2 ML VIAL ONE (09:07)
[2019-08-03] MEDS ORDERED: MIDAZOLAM HCL 1 MG/ML 2ML VIAL ONE (09:07)
--- NOTE | 2019-08-03 09:52 | History & Physical Bridge Note ---
Date of Service August 03, 2019 History & Physical Bridge Note I have examined the patient, reviewed the History & Physical and in the interval since the performance of the History & Physical I have noted the following changes of clinical significance: no changes noted
[2019-08-03] MEDS ORDERED: ePHEDrine sulfate 50 MG/ML AMP IV PRN (10:20)
[2019-08-03] MEDS ORDERED: PHENYLEPHRINE 100MCG/ML 5ML SYR IV PRN (10:20)
[2019-08-03] MEDS ORDERED: ATROPINE SULFATE 0.1 MG/ML 10ML SYR IV PRN (10:20)
[2019-08-03] MEDS ORDERED: ONDANSETRON INJ 2 MG/ML 2 ML VIAL IV PRN (10:20)
[2019-08-03] MEDS ORDERED: fentaNYL citrate 100 MCG/2 ML VIAL IV PRN (10:20)
[2019-08-03] MEDS ORDERED: LABETALOL HCL IV 5 MG/ML 20ML IV PRN (10:20)
[2019-08-03] MEDS ORDERED: BACITRACIN INJ 50,000 UNIT VIAL ONE (10:25)
[2019-08-03] MEDS ORDERED: ORTHO JOINT ANESTHETIC ONE (10:25)
--- NOTE | 2019-08-03 11:57 | Operative Report ---
Post Operative Report Pre & Post Diagnosis Operation Date: 08/03/19 11:00 Pre-Op Diagnosis: Right Knee Osteoarthritis Post-Op Diagnosis: Right Knee Osteoarthritis I identified the patient and participated in the time-out.: Yes Procedure Operation Date: 08/03/19 11:00 Actual Procedures p Right Total Knee Arthroplasty(Right) utilizing [employer] journey 2 patient matched total knee arthroplasty size 5 femur 5 tibia 13 poly-32 oval patella- Maykel Cervantes DO Surgeon Maykel Cervantes DO Mosquito Sprayer Obey TAPIA Estimated Blood Loss 5 Findings Consistent with Post-Op Diagnosis Patient presents severe end-stage DJD about the right knee no response to conservative management some subchondral sclerosis marginal osteophytes cystic changes eburnated [id number] with a moderate to large effusion Specimens Bone and cartilage Drains Medium bore Hemovac Complications none Disposition Accompanied Patient To Recovery: No Disposition: Recovery Room Indications Patient presents as a 58-year-old white female with severe end-stage DJD about the right knee no response to conservative measures inspiratory arthroplasty the above intraoperative findings were noted patient is failed attempted conservative management quitting corticosteroid injections Visco supplementation relative rest activity modification bracing and physical therapy the above intraoperative findings noted times surgery Description of Procedure After patient is properly identifiedAfter proper prepping and draping of the Right lower extremity anterior midline incision was made over the region of the extensor extensor mechanism after meticulous hemostasis was obtained and maintained in subcutaneous tissues a medial parapatellar incision was made The patella was subluxed lateralward the medial lateral gutter were cleaned from any hypertrophic synovitis and scar tissue of the distal femoral block was placed and the distal femoral osteotomy cut was made subsequently the chamfers anterior and posterior osteotomy cuts were made utilizing the 4-in-1 block the tibia was subsequently subluxed anteriorward medial and ateral meniscal remnants were excised in their entirety remnants of the anterior and posterior cruciate ligaments were excised in their entirety excellent exposure of the proximal tibia was obtained the tibial osteotomy guide was placed on the proximal tibial osteotomy cut was made once again the knee was irrigated with copious amounts of sterile saline solution the patella was subsequently everted lateralward thickened scar tissue around the patella was removed the patella was subsequently cut utilizing a freehand technique and was drilled prepared for final preparation and placement of patella socially flexion-extension gaps were checked and the equal and symmetric trials were placed to the appropriate femoral and tibial trials with poly-spacer being placed for equal flexion and extension gaps and full range of motion including extension to 0 and flexion to 140 the trial components after having been taken to recovery range of motion was subsequently removed meticulous hemostasis was obtained and maintained subsequently a knee block injection of joint cocktail including ropivacaine 0.5% 150 mg. Bupivacaine 0.5% epinephrine 1-200,030 mL's toradol 30 mg dexamethasone 4 mg ketamine 10 mg clonidine 100 micrograms normal saline solution 30 mg was infiltrated into the soft tissues of the posterior knee medial lateral gutters and periosteal synovium special attention was paid to protect neurovascular structures at all times subsequently trial components having been removed the knee was irrigated with sterile saline solution. debris was removed the proximal tibia was subsequently prepared and was made ready for the placement of the tibial component tibial component was also cemented and tamped into position the femoral component was subsequently placed and cemented in the position the patellar component was subsequently cemented in position because hemostasis once again obtained and maintained wound having been thoroughly irrigated with debridement and debridement lavage was performed as well as a medial parapatellar incision closed with #1 Vicryl in interrupted fashion subcutaneous was closed with #2 Vicryl skin was closed with skin clips. PA-C was necessary for prepping and drapping as well as wound closure of deep fascia Sub cutaneous tissue and skin and was necessary for the case. A sterile compressive dressing was placed patient was taken to recovery in stable condition of report dictated by Billy I attest to the content of the Intraoperative Record and any orders documented therein. Any exceptions are noted below. I attest to the content of the Intraoperative Record and any orders documented therein. Any exceptions are noted below.
--- NOTE | 2019-08-03 13:20 | Anesthesiology Progress Note ---
Date of Service August 03, 2019 Anesthesia Post Procedure Vital Signs Vital Signs: Temp Pulse Resp BP Pulse Ox 08/03/19 13:00 73 14 122/75 94 08/03/19 12:50 76 14 116/72 93 08/03/19 12:41 36 C L 80 18 116/69 97 08/03/19 09:12 36.8 C 66 18 111/69 99 Pain Intensity Right Knee: Pain Intensity: 3 Head: Pain Intensity: 2 Transfer of Care Handoff Completed per policy Notes Mental Status: alert / awake / arousable Patient Amnestic to Procedure: Yes Nausea / Vomiting: adequately controlled Pain: adequately controlled Airway Patency, RR, SpO2: stable & adequate BP & HR: stable & adequate Hydration State: stable & adequate Neuraxial Anesthesia: was administered and sensory block is resolving Anesthetic Complications: no major complications apparent and Pt Satisfied with anesthetic care Notes: The patient has a slight headache. She also complains of a lump in her chest that she thinks is from swallowing the preoperative pills. She has no chest pain or pain radiating down her arm, no chest heaviness, and no nausea. Rhythm strip shows normal sinus. Her vitals are stable and she otherwise feels well.
--- NOTE | 2019-08-03 13:41 | XRay Report ---
XR knee RT 1 or 2V routine HISTORY: 58 years-old Female Surgical Post Op right knee total joint arthroplasty. History of degene rative joint disease COMPARISON: None available TECHNIQUE: 2 views of the right knee FINDINGS: Right knee total joint arthroplasty and patella resurfacing. Satisfactory alignment without acute fra cture or retained foreign body. Surgical drainage catheter is noted along with expected postsurgical soft tissue swelling and deep tissue air. IMPRESSION: Satisfactory alignment of the right knee total joint arthroplasty. The above report was generated using voice recognition software. It may contain grammatical, syntax o r spelling errors. Electronically signed by: Justo Garcia M.D. 08/03/2019 1:39 PM
[2019-08-03] MEDS ORDERED: MAGNESIUM HYDROXIDE SUSP 30 ML UDC PO PRN (14:28)
[2019-08-03] MEDS ORDERED: METOCLOPRAMIDE HCL INJ 5 MG/ML 2 ML VIAL IV PRN (14:28)
[2019-08-03] MEDS ORDERED: SODIUM CHLORIDE 0.9% 1000ML 1,000 ML IV SCH (14:28)
[2019-08-03] MEDS ORDERED: bisacodyL 10 MG SUPP PR PRN (14:28)
[2019-08-03] MEDS ORDERED: NALOXONE HCL 0.4 MG/1 ML VIAL/CARP IV PRN (14:28)
[2019-08-03] MEDS ORDERED: HYDROmorphone INJ 1 MG/ML SYRINGE IV PRN (14:28)
[2019-08-03] MEDS ORDERED: MEDICAL MARIJUANA PO SCH (15:00)
[2019-08-03] MEDS: KETOROLAC 30 MG/ML VIAL IV SCH ×2 (15:45→21:01)
[2019-08-03] MEDS: ACETAMINOPHEN 500 MG TAB PO SCH ×2 (15:45→21:01)
[2019-08-03] MEDS: CEFAZOLIN 2000MG 2,000 MG/15 ML SYR IV SCH (18:10)
[2019-08-03] MEDS: OXYCODONE HCL IR 5 MG TAB (IMMEDIATE RELEASE) PO PRN (18:11)
[2019-08-03] MEDS: SENNA 8.6 MG TAB PO SCH (21:01)
[2019-08-03] MEDS: DOCUSATE SODIUM 100 MG CAP PO SCH (21:01)
[2019-08-03] MEDS: ASPIRIN 81 MG ECTAB PO SCH (21:01)
[2019-08-04] MEDS: OXYCODONE HCL IR 5 MG TAB (IMMEDIATE RELEASE) PO PRN ×4 (00:34→20:26)
[2019-08-04] MEDS: KETOROLAC 30 MG/ML VIAL IV SCH ×2 (03:10→10:03)
[2019-08-04] MEDS: CEFAZOLIN 2000MG 2,000 MG/15 ML SYR IV SCH (03:10)
[2019-08-04] MEDS: ACETAMINOPHEN 500 MG TAB PO SCH ×3 (05:12→21:03)
[2019-08-04 06:34] LABS: Hematocrit (blood only) 34.2 % (37-47); Hemoglobin 11.3 g/dL (12.0-16.0); Mean Corpuscular Hemoglobin 31.9 pg (25-34); Mean Corpuscular Volume 96.6 fL (80-100); Mean Platelet Volume 10.9 fL (7.4-10.4); Platelet Count 181 K/uL (130-400); RDW Coefficient of Variation 12.8 % (11.5-14.5); RDW Standard Deviation 45.2 fL (36.4-46.3); Red Blood Count 3.54 M/uL (4.2-5.4); White Blood Count 11.42 K/uL (4.8-10.8)
--- NOTE | 2019-08-04 06:41 | Orthopedic Progress Note ---
Date of Service August 04, 2019 Assessment & Plan (1) History of total right knee replacement: POD #1 s/p Right TKA pt/ot dvt proph with DARIUS/SCD/ASA plan for d/c home with OPPT when stable Subjective POD #1 s/p Right TKA Review of Systems Constitutional: no fever, no chills and no sweats Respiratory: no cough and no dyspnea Cardiovascular: no chest pain and no dyspnea Gastrointestinal: no abdominal pain, no nausea and no vomiting Physical Exam Physical Exam: Vital Signs Temp 36.7 C 08/04/19 07:19 Pulse 62 08/04/19 07:19 Resp 16 08/04/19 07:19 BP 106/66 08/04/19 07:19 Pulse Ox 96 08/04/19 07:19 Intake & Output 08/03/1908/04/08/04/19 18:59 06:59 18:59 Intake Total 2080 / 3560 1480 / 3560 Output Total 50 / 925 875 / 925 Balance 2030 / 2635 605 / 2635 Weight 107.354 kg Intake: IV 1180 / 1180 Lr 1,000 ml @ 15 mls/hr IV . 600 / 600 Q24H PEREZ Rx#:[id number] Nss 1000ML 1,0 00 ml @ 100 mls/ 360 / 360 hr IV .Q10H SC H Rx#:[id number] Cyklokapron 1, 000 mg In Sodium 220 / 220 Chloride 100 m l @ 660 mls/hr IV 0630 PEREZ Rx#:[id number] IV Perioperative 900 / 900 Oral 1480 / 1480 Output: Urine 500 / 500 Estimated Blood Loss 10 / 10 Drain Output 40 / 415 375 / 415 Right Knee Hem ovac 40 / 415 375 / 415 Other: # Unmeasured Voi ds 1 Constitutional: WD/WN, vitals as above no acute distress Musculoskeletal: Right Leg: NVDI, calf SNT, negative lei sign. DP palpable, able to wiggle toes/ankle movement without difficulty. dressing clean dry and intact. Results & Data Vital Signs (Past 12 Hours) Vital Signs Temp Pulse Resp BP BP Pulse Ox 08/04/19 03:11 36.6 C 65 16 112/69 94 08/03/19 23:49 36.9 C 70 16 107/66 95 08/03/19 19:22 36.6 C 66 17 107/73 96 Laboratory Results Laboratory Results WBC 11.42 K/uL (4.8-10.8) H 08/04/19 06:15 RBC 3.54 M/uL (4.2-5.4) L 08/04/19 06:15 Hgb 11.3 g/dL (12.0-16.0) L 08/04/19 06:15 Hct 34.2 % (37-47) L 08/04/19 06:15 MCV 96.6 fL (80-100) 08/04/19 06:15 MCH 31.9 pg (25-34) 08/04/19 06:15 MCHC 33.0 g/dL (32-36) 08/04/19 06:15 RDW Std Deviation 45.2 fL (36.4-46.3) 08/04/19 06:15 RDW Coeff of [place] 12.8 % (11.5-14.5) 08/04/19 06:15 Plt Count 181 K/uL (130-400) 08/04/19 06:15 MPV 10.9 fL (7.4-10.4) H 08/04/19 06:15 Immature Gran % (Auto) 0.3 % 06/30/19 09:26 Neut % (Auto) 56.2 % 06/30/19 09:26 Lymph % (Auto) 25.0 % 06/30/19 09:26 [place] % (Auto) 15.1 % 06/30/19 09:26 Eos % (Auto) 2.4 % 06/30/19 09:26 Baso % (Auto) 1.0 % 06/30/19 09:26 Immature Gran # (Auto) 0.02 K/uL (0.00-0.02) 06/30/19 09:26 Neut # (Auto) 3.27 K/uL (1.4-6.5) 06/30/19 09:26 Lymph # (Auto) 1.46 K/uL (1.2-3.4) 06/30/19 09:26 [place] # (Auto) 0.88 K/uL (0.11-0.59) H 06/30/19 09:26 Eos # (Auto) 0.14 K/uL (0-0.5) 06/30/19 09:26 Baso # (Auto) 0.06 K/uL (0-0.2) 06/30/19 09:26 PT 10.0 Seconds (9.0-12.0) 06/30/19 09:26 INR 1.0 (0.9-1.1) 06/30/19 09:26 APTT 24.7 Seconds (21.0-31.0) 06/30/19 09:26 PTT Ratio 0.9 06/30/19 09:26 Sodium 141 mmol/L (136-145) 08/04/19 06:15 Potassium 3.9 mmol/L (3.5-5.1) 08/04/19 06:15 Chloride 110 mmol/L (98-107) H 08/04/19 06:15 Carbon Dioxide 25 mmol/L (21-32) 08/04/19 06:15 Anion Gap 6.0 (3-11) 08/04/19 06:15 BUN 14 mg/dl (7-18) 08/04/19 06:15 Creatinine 0.73 mg/dl (0.6-1.2) 08/04/19 06:15 Est Cr Clr Drug Dosing 110.4 ml/min 08/04/19 06:15 Est GFR ( Amer) 106.7 08/04/19 06:15 Est GFR (Non-Af Amer) 92.1 08/04/19 06:15 BUN/Creatinine Ratio 19.6 (10-20) 08/04/19 06:15 Glucose 118 mg/dl (70-99) H 08/04/19 06:15 Estimat Average Glucose 114 mg/dl 06/30/19 09:26 Hemoglobin A1c 5.6 % (4.5-5.6) 06/30/19 09:26 Calcium 9.2 mg/dl (8.5-10.1) 08/04/19 06:15 Albumin 3.9 gm/dl (3.4-5.0) 06/30/19 09:26 Urine Color Yellow 06/30/19 09:26 Urine Appearance Clear (Clear) 06/30/19 09:26 Urine pH 7.0 (4.5-7.5) 06/30/19 09:26 Ur Specific [place] 1.016 (1.000-1.030) 06/30/19 09:26 Urine Protein Negative (Negative) 06/30/19 09:26 Urine Glucose (UA) Negative (Negative) 06/30/19 09:26 Urine Ketones Negative (Negative) 06/30/19 09:26 Urine Blood Negative (Negative) 06/30/19 09:26 Urine Nitrite Negative (Negative) 06/30/19 09:26 Urine Bilirubin Negative (Negative) 06/30/19 09:26 Urine Urobilinogen Negative (Negative) 06/30/19 09:26 Ur Leukocyte Esterase Negative (Negative) 06/30/19 09:26 Blood Type O Positive 06/30/19 09:26 Antibody Screen NEGATIVE 06/30/19 09:26 Diagnostic Findings XR knee RT 1 or 2V routine HISTORY: 58 years-old Female Surgical Post Op right knee total joint arthroplasty. History of degenerative joint disease COMPARISON: None available TECHNIQUE: 2 views of the right knee FINDINGS: Right knee total joint arthroplasty and patella resurfacing. Satisfactory alignment without acute fracture or retained foreign body. Surgical drainage catheter is noted along with expected postsurgical soft tissue swelling and deep tissue air. IMPRESSION: Satisfactory alignment of the right knee total joint arthroplasty.
[2019-08-04 07:14] LABS: BUN Creatinine Ratio 19.6 (10-20); Calcium 9.2 mg/dl (8.5-10.1); Creatinine Clr Calc Pharmacy 110.4 ml/min; Est GFR (African American) 106.7; Est GFR (Non-African American) 92.1; Potassium 3.9 mmol/L (3.5-5.1)
[2019-08-04] MEDS: DOCUSATE SODIUM 100 MG CAP PO SCH ×2 (09:09→20:27)
[2019-08-04] MEDS: MULTIVITAMIN TAB PO SCH (09:09)
[2019-08-04] MEDS: ASPIRIN 81 MG ECTAB PO SCH ×2 (09:10→20:27)
[2019-08-04] MEDS: VALACYCLOVIR HCL 500 MG TABLET PO SCH (09:11)
[2019-08-04] MEDS: ONDANSETRON INJ 2 MG/ML 2 ML VIAL IV PRN (12:32)
--- NOTE | 2019-08-04 14:37 | Anesthesiology Progress Note ---
Date of Service August 04, 2019 Anesthesia Post Procedure Vital Signs Vital Signs: Temp Pulse Resp BP BP Pulse Ox 08/04/19 12:41 36.7 C 70 16 112/72 96 08/04/19 07:19 36.7 C 62 16 106/66 96 08/04/19 03:11 36.6 C 65 16 112/69 94 08/03/19 23:49 36.9 C 70 16 107/66 95 08/03/19 19:22 36.6 C 66 17 107/73 96 08/03/19 17:34 36.3 C L 69 16 123/79 96 08/03/19 16:24 36.4 C L 68 17 123/79 96 08/03/19 15:05 36.6 C 64 16 113/75 97 Pain Intensity Right Knee: Pain Intensity: 4 Head: Pain Intensity: 4 Notes Mental Status: alert / awake / arousable and participated in evaluation Patient Amnestic to Procedure: Yes Nausea / Vomiting: adequately controlled Pain: adequately controlled Airway Patency, RR, SpO2: stable & adequate BP & HR: stable & adequate Hydration State: stable & adequate Neuraxial Anesthesia: was administered and sensory block resolved Anesthetic Complications: no major complications apparent and Pt Satisfied with anesthetic care
[2019-08-04] MEDS: SENNA 8.6 MG TAB PO SCH (20:27)
[2019-08-04] MEDS: CeleBREX 200 MG CAP PO SCH (20:27)
[2019-08-05] MEDS: OXYCODONE HCL IR 5 MG TAB (IMMEDIATE RELEASE) PO PRN ×4 (00:10→13:03)
[2019-08-05] MEDS: ACETAMINOPHEN 500 MG TAB PO SCH ×2 (05:27→13:04)
--- NOTE | 2019-08-05 07:13 | Orthopedic Progress Note ---
Date of Service August 05, 2019 Assessment & Plan (1) History of total right knee replacement: POD #2 s/p Right TKA pt/ot dvt proph with DRAIUS/SCD/ASA plan for d/c home with OPPT after PT today Subjective POD #2 s/p Right TKA Review of Systems Review of Systems: All systems reviewed & are unremarkable except as noted in HPI & below Constitutional: no fever and no chills Cardiovascular: no chest pain and no dyspnea Physical Exam Physical Exam: Vital Signs Temp 36.7 C 08/05/19 06:08 Pulse 65 08/05/19 06:08 Resp 16 08/05/19 06:08 BP 129/82 08/05/19 06:08 Pulse Ox 96 08/05/19 06:08 Intake & Output 08/04/19 08/05/19 08/05/19 18:59 06:59 18:59 Intake Total 550 / 550 Output Total 100 / 200 100 / 200 Balance 450 / 350 -100 / 350 Intake: Oral 550 / 550 Output: Drain Output 100 / 200 100 / 200 Right Knee Hem ovac 100 / 200 100 / 200 Other: # Unmeasured Voi ds 1 1 Constitutional: WD/WN, vitals as above no acute distress Musculoskeletal: right knee: NVDI, calf SNT, negative lei sign. DP palpable, able to wiggle toes/ankle movement without difficulty. RAVEN dressing clean dry and intact. expected post-operative bruising noted. Results & Data Vital Signs (Past 12 Hours) Vital Signs Temp Pulse Resp BP Pulse Ox 08/05/19 06:08 36.7 C 65 16 129/82 96 08/04/19 22:51 36.6 C 75 16 119/72 96
[2019-08-05] MEDS: CeleBREX 200 MG CAP PO SCH (08:09)
[2019-08-05] MEDS: DOCUSATE SODIUM 100 MG CAP PO SCH (08:09)
[2019-08-05] MEDS: VALACYCLOVIR HCL 500 MG TABLET PO SCH (08:10)
[2019-08-05] MEDS: ASPIRIN 81 MG ECTAB PO SCH (08:10)
[2019-08-05] MEDS: MULTIVITAMIN TAB PO SCH (08:10)
--- NOTE | 2019-08-05 08:32 | Discharge Summary ---
Date of Service date of discharge: August 05, 2019 date of admission: 08/03/19 Admission HPI Per Admitting Provider Ms Marrufo is a 58 year old female who complains of right knee pain, presents for pre-op evaluation prior to a right total knee replacement at [facility]. She presents with pain and stiffness on the right side. She states that the symptoms have been chronic non-traumatic and her symptoms occur constantly with intermittent worsening. Currently the patient states that the symptoms are moderate-severe. The pain is described as aching and throbbing and occur continuously. The symptoms are aggravated by ascending stairs, descending stairs, daily activities, driving, first steps while awake, kneeling, movement, repetitive activities, sleeping on the affected side, squatting, walking and weight bearing. Sofie states that the symptoms are relieved by no specific activity. In addition to right knee pain the patient is also experiencing decreased mobility, difficulty bending, difficulty going to sleep, limping, nighttime awakening, pain, stiffness, tenderness and weakness. Prior NSAIDs include Celebrex and Ibuprofen. She has been treated with a corticosteroid injection on the right side and has had previous therapy. Principal Diagnosis right knee osteoarthritis Discharge Exam Vital Signs Temp 36.7 C 08/05/19 06:08 Pulse 65 08/05/19 06:08 Resp 16 08/05/19 06:08 BP 129/82 08/05/19 06:08 Pulse Ox 96 08/05/19 06:08 Intake & Output 08/04/19 08/05/19 08/05/19 18:59 06:59 18:59 Intake Total 550 / 550 Output Total 100 / 200 100 / 200 Balance 450 / 350 -100 / 350 Intake: Oral 550 / 550 Output: Drain Output 100 / 200 100 / 200 Right Knee Hemovac 100 / 200 100 / 200 Other: # Unmeasured Voids 1 1 Constitutional WD/WN, vitals as above no acute distress Musculoskeletal right knee: NVDI, calf SNT, negative lei sign. DP palpable, able to wiggle toes/ankle movement without difficulty. RAVEN dressing clean dry and intact. expected post-operative bruising noted. Discharge Data Allergies Allergy/AdvReac Type Severity Reaction Status Date / Time succinylcholine Allergy Unknown pseudocholinesterase Verified 06/30/19 09:04 deficiency codeine AdvReac Unknown n/v Verified 06/24/19 08:02 lorazepam [From Ativan] AdvReac Unknown nervousness Verified 06/30/19 09:04 meperidine AdvReac Unknown n/v Verified 06/24/19 08:02 perfume AdvReac Unknown nausea, Verified 06/30/19 09:04 headache Consultations 08/03/19 14:28 Consult Case Management - Discharge Planning Routine Procedures Performed Operation Date: 08/03/19 11:00 Actual Procedures p Right Total Knee Arthroplasty(Right) - Maykel Cervantes DO Ordered Studies 08/03/19 05:00 US - OR guided needle placemen Routine Hospital Course (1) History of total right knee replacement: POD #2 s/p Right TKA pt/ot dvt proph with DARIUS/SCD/ASA plan for d/c home with OPPT after PT today Total Time Total Time Spent Total Time Spent (In Minutes): 20 Total Time Includes: Examination of the Patient, Discharge Planning and Medication Reconciliation Discharge Plan Discharge Items Patient Disposition: Home - Self-Care Reason For Visit: Right Knee Osteoarthritis Discharge Diagnosis: right total knee replacement Condition on Discharge: Good Activity: Per Instructions section Lifting: Wait until after follow-up appointment Exercise/Sports: Wait until after follow-up appointment Weightbearing: Full weightbearing and Right weightbearing Non-emergency contact: Surgeon Call non-emergency contact if: your temperature is above 101, your wound has increased redness, your wound has increased drainage and your wound pain has increased Follow-up/Referrals: Josselin Bhat M.D. [Primary Care Provider] - Diet: Regular Addtl Attending Provider Instructions: ACTIVITY RECOMMENDATIONS: SELF CARE INSTRUCTIONS AFTER TOTAL KNEE REPLACEMENT A. You may need to continue a physical therapy program after discharge from the hospital. There are several options available to you. Your doctor will assist you in selecting the best one for you. 1. An out-patient facility 2 to 3 times a week for therapy or home therapy. 2. Continue working on all exercises taught to you in the hospital. Your goals should be to increase bending of your knee to 90 degrees and beyond and to fully straighten your knee. B. You may progress at your own pace from walking with a walker or crutches to a cane; then to no assistive devices. C. Make walking a part of your daily routine. Be up as much as comfortable with rest periods throughout the day. Rest with leg elevation is very important. Use the ice wrap frequently for the first 3-4 weeks. D. There are no restrictions on activities. You may ride in a car, shop, participate in fitness floor attendant and all social activities. E. Wear the long elastic stockings (DARIUS hose) 20 hours a day for 2 weeks after surgery. They can be removed several times a day for laundering and for a bath. F. You may shower, no tub baths until cleared by your doctor. SPECIAL CARE INSTRUCTIONS: VERY IMPORTANT TO READ AND REVIEW A. There are a few signs you need to watch for after you are home. Call [facility] [place] if you notice any of the followin. Increased severe knee pain. Some pain is expected especially when you exercise. 2. Increased swelling in your leg or knee; pain or swelling of the calf muscle in either lower leg. 3. Any fluid drainage from the incision. 4. Shortness of breath or chest pain. B. Please call [facility] at if you have any concerns or questions about your operation or recovery. The doctor or his nurse will return your call promptly. C. You must take antibiotics before dental work, bladder, bowel or other surgery. Your doctor will provide you with a permanent care to carry describing this precaution. IMPORTANT: * REMEMBER TO TAKE ASPIRIN, 81 MG, TWICE DAILY FOR 4 WEEKS UNLESS OTHERWISE DIRECTED. THIS IS YOUR BLOOD THINNER. * HIGH RISK PATIENTS MAY BE PRESCRIBED A STRONGER BLOOD THINNER. THIS WILL BE PROVIDED AT DISCHARGE. * CALL IF INCREASED PAIN, REDNESS, DRAINAGE OR FEVER GREATER THAT 101. * WEAR DARIUS HOSE 20 HOURS PER DAY FOR 2 WEEKS. * RAVEN Dressing- This is a large suction dressing covering your incision. This will help pull any excess drainage from the wound and allow your incision to heal properly. You may shower with this if you can keep the unit outside of the shower. If any bleeding or leakage is noted please call your doctor's office. This will remain on your incision for 7 days and then should be removed. This can be done yourself or by the home nursing staff if applicable. The entire unit is disposable once removed. Once removed, keep incision clean and dry. If redness or drainage is noted, please call your surgeon. ONCE RAVEN IS REMOVED, FOLLOW THESE INSTRUCTIONS: DERMABOND Prineo- This is a mesh tape dressing that is covered with glue. It should remain in place until the incision is properly healed, usually 10-14 days. This dressing is designed to naturally slough off. You may trim the excess mesh tape as it peels off. Incision may be briefly wet in a shower. Dry immediately by blotting with a clean, dry towel. Do not bath or swim until instructed by your doctor. Do not scratch, rub, or pick at the dressing. Do not apply any topical ointments or lotions until dressing is completely removed and/or instructed by your doctor. There may be a small piece of suture material at one end of your incision. Do not pull or trim this. If it is bothersome or catching on clothing, you may cover it with a band-aid. IF INCISION IS LEAKING THROUGH DRESSING, CALL THE OFFICE . FOLLOW UP VISIT: If appointment is not already scheduled: Please call [facility] [place] to make a follow-up appointment for 2 weeks after your surgery at . Pending Studies at Discharge: No Stand-Alone Forms: My [facility], Smoking Cessation Medications and DC Order Prescriptions: New celecoxib [Celebrex] 200 mg Capsule 200 mg PO BID 30 Days Qty: 60 RF: 0 aspirin [Ecotrin Low Strength] 81 mg Tablet,Delayed Release (Dr/Ec) 81 mg PO BID 30 Days Qty: 60 RF: 0 acetaminophen [Tylenol Extra Strength] 500 mg Tablet 1,000 mg PO Q8 14 Days Qty: 84 RF: 0 oxycodone 5 mg Tablet 5 - 10 mg PO Q6H PRN (Reason: pain) Qty: 30 RF: 0 docusate sodium 100 mg Capsule 100 mg PO BID 10 Days Qty: 20 RF: 0 cefadroxil 500 mg capsule 500 mg PO BID 10 Days Qty: 20 RF: 0 Continued valacyclovir [Valtrex] 500 mg Tablet 1,000 mg PO DAILY RF: 0 ergocalciferol (vitamin D2) [Vitamin D2] 50,000 unit Capsule 50,000 unit PO WK RF: 0 Medical Marijuana 1 dose UD PRN (Reason: DIRECTED ) RF: 0 Discontinued tramadol [Ultram] 50 mg Tablet 50 - 100 mg PO UD PRN (Reason: Pain) RF: 0 celecoxib [Celebrex] 100 mg Capsule 200 mg PO DAILY RF: 0 Discharge Orders: Discharge Order (Routine); Ordered 08/05/19 Ordered By: Obey Antony Admission Data Admit Date/Time: 08/03/19 12:45 Attending Provider: Maykel Cervantes Admit Provider: Maykel Cervantes Primary Care Provider: Josselin Bhat V.
[2019-08-05] MEDS: ONDANSETRON INJ 2 MG/ML 2 ML VIAL IV PRN (12:30)
[2019-08-09] MEDS ORDERED: ERGOCALCIFEROL 50,000 UNITS CAP PO SCH (09:00)
== END 2019-08-05 13:48 | disposition home or self-care (01) | DRG 470 ==
LOC: PAT 08:30 → 3E 12:45